=== PATIENT | female | born 2000 | race Two or more races ===

== ENCOUNTER → 2018-03-28 | Emergency (ER) | payer OTHER ==
[~2018-03-28] VITALS: Ht 162.6 cm; Wt 83.9 kg
[~2018-03-28] MED LIST: AMOX-CLAV 875-1 EACH PO; ORASEP SPRAY30 ML MM
== END | disposition home or self-care (01) ==
LOC: ER 23:13
DX: J03.80 Acute tonsillitis due to other specified organisms (principal)